=== PATIENT | female | born 1970 | race Hispanic/Latino ===

== ENCOUNTER 2021-10-11 13:27 | Emergency (ER) | payer OTHER ==
[~2021-10-11] VITALS: Ht 170.2 cm; Wt 126.1 kg
[2021-10-11] MEDS ORDERED: IBUPROFEN 600 MG TAB PO STA (14:44)
[2021-10-11] MEDS ORDERED: CASIRIVIMAB/IMDEVIMAB 10 ML in SODIUM CHLORIDE 0.9% 100 ML IV ONE (15:45)
[2021-10-11 17:09] VITALS: BP 137/75
== END 2021-10-11 17:10 | disposition home or self-care (01) ==
LOC: ER 13:33
DX: U07.1 COVID-19 (principal)
CPT/HCPCS: 99284; J7050; U0002